=== PATIENT | female | born 1970 ===

== ENCOUNTER 2018-03-28 21:57 | Emergency (ER) | payer MEDICAID, OTHER ==
[2018-03-28 21:58] VITALS: BMI 24.6
--- NOTE | 2018-03-28 22:19 | ED PDOC ---
Arrival/HPI - General Time Seen by Provider: 03/28/18 22:12 Historian: Patient - History of Present Illness Narrative History of Present Illness (Text): 03/28/18 22:14 48 y/o female, no significant pmh, nkda, c/o Past Medical History - Infectious Disease Hx of Infectious Diseases: None - Tetanus Immunization Tetanus Immunization: Up to Date - Surgical History Hx Appendectomy: Yes - Anesthesia Hx Anesthesia: Yes Hx Anesthesia Reactions: No Hx Malignant Hyperthermia: No - Suicidal Assessment Feels Threatened In Home Enviroment: No Family/Social History Smoking Status: Never Smoked Hx Alcohol Use: No Hx Substance Use Treatment: No Allergies/Home Meds Allergies/Adverse Reactions: Allergies No Known Allergies Allergy (Verified 05/07/16 07:49) Disposition/Present on Arrival - Present on Arrival History of DVT/PE: No History of Uncontrolled Diabetes: No Urinary Catheter: No History Surgical Site Infection Following: None - Disposition
[2018-03-28] MEDS ORDERED: Sodium Chloride 0.9% 1,000 ML IV STA (22:20)
[2018-03-28 22:22] VITALS: TEMP 98.3
--- NOTE | 2018-03-28 22:25 | ED PDOC ---
Arrival/HPI <Wale Lassiter - Last Filed: 03/28/18 23:14> - General Historian: Patient - History of Present Illness Time/Duration: 24 hours Symptom Onset: Gradual Symptom Course: Unchanged Quality: Aching Activities at Onset: Eating Context: Home <Vasyl Jarrett - Last Filed: 03/29/18 00:07> - General Chief Complaint: GI Problem Time Seen by Provider: 03/28/18 22:12 - History of Present Illness Narrative History of Present Illness (Text): 03/28/18 22:22 48 year old female, with no significant past medical history or any food or drug allergies, presents to the Emergency department complaining of epigastric discomfort associated with nausea, vomiting, and diarrhea after eating a piece of salmon last night. Patient informs similar symptoms 2 years ago when eating seafood however symptoms improved spontaneously. Patient denies any fever, recent travel, recent use of antibiotics, chest pain, shortness of breath or any other complaints. Patient presents to the Emergency department for medical evaluation. PMD: Dr. Hough (Vasyl Jarrett) Past Medical History - Provider Review Nursing Documentation Reviewed: Yes - Infectious Disease Hx of Infectious Diseases: None - Tetanus Immunization Tetanus Immunization: Up to Date - Reproductive Menopause: Yes - Psychiatric Hx Substance Use: No - Surgical History Hx Appendectomy: Yes Hx Tubal Ligation: Yes - Anesthesia Hx Anesthesia: Yes Hx Anesthesia Reactions: No Hx Malignant Hyperthermia: No - Suicidal Assessment Feels Threatened In Home Enviroment: No <Vasyl Jarrett - Last Filed: 03/29/18 00:07> Family/Social History - Physician Review Nursing Documentation Reviewed: Yes Family/Social History: No Known Family HX Smoking Status: Never Smoked Hx Alcohol Use: No Hx Substance Use: No Hx Substance Use Treatment: No <Vasyl Jarrett - Last Filed: 03/29/18 00:07> Allergies/Home Meds <Wale Lassiter - Last Filed: 03/28/18 23:14> <Vasyl Jarrett - Last Filed: 03/29/18 00:07> Allergies/Adverse Reactions: Allergies No Known Allergies Allergy (Verified 03/28/18 22:18) Review of Systems - Physician Review All systems were reviewed & negative as marked: Yes - Review of Systems Constitutional: Normal. absent: Fevers Respiratory: Normal. absent: SOB Cardiovascular: Normal. absent: Chest Pain Gastrointestinal: Abdominal Pain, Diarrhea, Nausea, Vomiting Musculoskeletal: absent: Arthralgias, Myalgias Skin: absent: Rash, Pruritis Psychiatric: absent: Anxiety, Depression <Vasyl Jarrett - Last Filed: 03/29/18 00:07> Physical Exam Vital Signs Reviewed: Yes Temperature: Afebrile Blood Pressure: Normal Pulse: Regular Respiratory Rate: Normal Appearance: Positive for: Well-Appearing, Non-Toxic, Comfortable Pain Distress: Mild Mental Status: Positive for: Alert and Oriented X 3 - Systems Exam Head: Present: Atraumatic, Normocephalic Pupils: Present: PERRL Extroacular Muscles: Present: EOMI Conjunctiva: Present: Normal Mouth: Present: Moist Mucous Membranes Neck: Present: Normal Range of Motion Respiratory/Chest: Present: Clear to Auscultation, Good Air Exchange. No: Respiratory Distress, Accessory Muscle Use Cardiovascular: Present: Regular Rate and Rhythm, Normal S1, S2. No: Murmurs Abdomen: No: Tenderness, Distention, Peritoneal Signs, Rebound, Guarding Back: Present: Normal Inspection Upper Extremity: Present: Normal Inspection. No: Cyanosis, Edema Lower Extremity: Present: Normal Inspection. No: Edema Neurological: Present: GCS=15, Speech Normal, Motor Func Grossly Intact, Gait Normal, Memory Normal Skin: Present: Warm, Dry, Normal Color. No: Rashes Psychiatric: Present: Alert, Oriented x 3, Normal Insight, Normal Concentration <Vasyl Jarrett - Last Filed: 03/29/18 00:07> Vital Signs Temp Pulse Resp BP Pulse Ox 03/28/18 22:14 98.3 F 71 17 136/82 100 Medical Decision Making <Wale Lassiter - Last Filed: 03/28/18 23:14> <Vasyl Jarrett - Last Filed: 03/29/18 00:07> ED Course and Treatment: 03/28/18 22:26 Impression: 48 year old female presents to the Emergency department for epigastric discomfort, nausea, vomiting, and diarrhea. Plan: -- Labs -- IV Fluids -- Pepcid -- Reglan -- Reassess and disposition 03/29/18 00:04 -Urine hcg is negative -Labs are non-significant except K+ 3.2 (potassium chloride 40meq po ordered), Mg 1.6 (MgSul 1gm IV ordered). -Symptoms resolved, eating and drinking well, request to be discharged home. -Discharge home with pepcid, zofran, avoid dairy diet for 4-5 days, stay hydrated, BRAT diet, follow up with your own pmd and GI within 2 days, return to the ER for any new or worsening signs or symptoms. (Vasyl Jarrett) - Lab Interpretations Lab Results: 03/28/18 22:30 03/28/18 22:30 Lab Results 03/28/18 23:10: Beta HCG, Quant < 2.39 03/28/18 22:30: WBC 8.8, RBC 4.40, Hgb 11.7 L, Hct 35.2 L, MCV 80.0, MCH 26.6, MCHC 33.2, RDW 13.0, Plt Count 172, MPV 10.1, Gran % 71.1 H, Lymph % (Auto) 22.4 , [place] % (Auto) 5.7, Eos % (Auto) 0.7 L, Baso % (Auto) 0.1, Gran # 6.27, Lymph # (Auto) 2.0, [place] # (Auto) 0.5, Eos # (Auto) 0.1, Baso # (Auto) 0.01 03/28/18 22:30: Sodium 142, Potassium 3.2 L, Chloride 104, Carbon Dioxide 27, Anion Gap 14, BUN 15, Creatinine 0.6 L, Est GFR ( Amer) > 60, Est GFR ( Non-Af Amer) > 60, Random Glucose 111 H, Calcium 9.1, Magnesium 1.6 L, Total Bilirubin 0.2, AST 33, ALT 29, Alkaline Phosphatase 54, Lactate Dehydrogenase 372, Total Creatine Kinase 57, Troponin I < 0.01, Total Protein 6.5, Albumin 4.1 , Globulin 2.4, Albumin/Globulin Ratio 1.7, Lipase 99 - Medication Orders Current Medication Orders: Magnesium Sulfate/Dextrose (Magnesium Sulfate 1 Gm/100 Ml D5w) 1 gm in 100 mls @ 100 mls/hr IVPB ONCE ONE Stop: 03/29/18 00:59 Potassium Chloride (K-Dur 20 Meq Er Tab) 40 meq PO STAT STA Stop: 03/29/18 00:01 Discontinued Medications Sodium Chloride (Sodium Chloride 0.9%) 1,000 mls @ 999 mls/hr IV .Q1H1M STA Stop: 03/28/18 23:20 Last Admin: 03/28/18 22:41 Dose: 999 mls/hr eMAR Start Stop Document 03/28/18 22:41 JOL (Rec: 03/28/18 22:41 JOL [id number]) Intravenous Solution Start Date 03/28/18 Start Time 22:41 End Date 03/28/18 End time 23:42 Total Infusion Time 61 Famotidine (Pepcid 20mg/50ml Premix) 20 mg in 50 mls @ 100 mls/hr IVPB ONCE ONE Stop: 03/28/18 22:59 Last Admin: 03/28/18 22:41 Dose: 100 mls/hr eMAR Start Stop Document 03/28/18 22:41 JOL (Rec: 03/28/18 22:41 JOL [id number]) Intravenous Solution Start Date 03/28/18 Start Time 22:41 End Date 03/28/18 End time 23:11 Total Infusion Time 30 Metoclopramide HCl (Reglan) 10 mg IVP STAT STA Stop: 03/28/18 22:21 Last Admin: 03/28/18 22:41 Dose: 10 mg IVP Administration Document 03/28/18 22:41 JOL (Rec: 03/28/18 22:41 JOL [id number]) Charges for Administration # of IVP Administrations 1 - PA / HOMEWORKER / Resident Statement JOSIE has reviewed & agrees with the documentation as recorded. <Wale Lassiter - Last Filed: 03/28/18 23:14> - PA / HOMEWORKER / Resident Statement JOSIE has reviewed & agrees with the documentation as recorded. - Scribe Statement The provider has reviewed the documentation as recorded by the Scribe <Vasyl Jarrett - Last Filed: 03/29/18 00:07> - Scribe Statement Priscilla Woo. All medical record entries made by the Scribe were at my direction and personally dictated by me. I have reviewed the chart and agree that the record accurately reflects my personal performance of the history, physical exam, medical decision making, and the department course for this patient. I have also personally directed, reviewed, and agree with the discharge instructions and disposition. (Vasyl Jarrett) Disposition/Present on Arrival <Wale Lassiter - Last Filed: 03/28/18 23:14> - Present on Arrival Any Indicators Present on Arrival: No History of DVT/PE: No History of Uncontrolled Diabetes: No Urinary Catheter: No History of Decub. Ulcer: No History Surgical Site Infection Following: None - Disposition Have Diagnosis and Disposition been Completed?: Yes Disposition Time: 22:36 Patient Plan: Discharge <Vasyl Jarrett - Last Filed: 03/29/18 00:07> - Disposition Diagnosis: Gastroenteritis, Hypomagnesemia, Hypokalemia Disposition: HOME/ ROUTINE Condition: IMPROVED Discharge Instructions (ExitCare): Hypokalemia (DC), Low Magnesium Level (DC), Gastroenteritis (ED) Additional Instructions: -Discharge home with pepcid, zofran, avoid dairy diet for 4-5 days, stay hydrated, BRAT diet, follow up with your own pmd and GI within 2 days, return to the ER for any new or worsening signs or symptoms. Prescriptions: Famotidine [Pepcid] 20 mg PO BID #20 tab Ondansetron [Zofran] 4 mg PO Q8H PRN #10 tab PRN Reason: Nausea/Vomiting Referrals: Umair Hough Jr., MD [Primary Care Provider] - Follow up with primary Fernando Sarkar DO [Staff Provider] - Follow up with primary Forms: WORK NOTE
[2018-03-28] MEDS ORDERED: Famotidine 20mg/50ml 20 MG/50 ML BAG IVPB ONE (22:30)
[2018-03-28 22:51] LABS: ALB/GLOB RATIO 1.7 (1.1-1.8); ALBUMIN 4.1 g/dL (3.0-4.8); ALT/SGPT 29 U/L (7-56); AST/SGOT 33 U/L (14-36); BLOOD UREA NITROGEN 15 mg/dL (7-21); CALCIUM 9.1 mg/dL (8.4-10.5); GFR AFRICAN-AMERICAN > 60; GFR NON-AFRICAN AMERICAN > 60; LIPASE 99 U/L (23-300)
[2018-03-28 22:55] LABS: BASO # 0.01 K/mm3 (0.0-2.0); BASO % 0.1 % (0.0-3.0); EOS # 0.1 (0.0-0.7); EOS % 0.7 % (1.5-5.0); GRAN # 6.27 (1.4-6.5); GRAN % 71.1 % (50.0-68.0); HEMOGLOBIN 11.7 g/dL (12.0-16.0); LYMPH % 22.4 % (22.0-35.0); MEAN CORPUSCULAR HEMOGLOBIN 26.6 pg (25.0-35.0); MEAN CORPUSCULAR HGB CONC 33.2 g/dl (31.0-37.0); MEAN PLATELET VOLUME 10.1 fl (7.0-11.0); MONO # 0.5 (0.1-0.6); MONO % 5.7 % (1.0-6.0); RBC 4.4 10^6/uL (3.5-6.1); WHITE BLOOD COUNT 8.8 10^3/ul (4.5-11.0)
[2018-03-28 23:02] LABS: TROPONIN I < 0.01 ng/mL
[2018-03-29] MEDS ORDERED: Potassium Chloride 20 mEq ER Tab PO STA
[2018-03-29] MEDS ORDERED: Magnesium Sulfate 1 gm in D5W 1 GM/100 ML BAG IVPB ONE
[2018-03-29 02:41] VITALS: BP 127/78; PULSE 68; RESP 18; O2SAT 99
== END 2018-03-29 01:10 | disposition home or self-care (01) ==
LOC: ED 21:57
DX: K52.9 Noninfective gastroenteritis and colitis, unspecified (principal); E83.42 Hypomagnesemia; E87.6 Hypokalemia
CPT/HCPCS: 80053; 82550; 83615; 83690; 83735; 84484; 84702; 85025; 96365; 96367; 96375; 99284; J2765; J3475; J7040

== ENCOUNTER 2018-06-27 10:20 | Emergency (ER) | payer MEDICAID ==
[2018-06-27 10:21] VITALS: BMI 24.6
[2018-06-27 10:55] VITALS: TEMP 98.7
--- NOTE | 2018-06-27 11:49 | ED PDOC ---
Arrival/HPI - General Historian: Patient <Cheyenne Burns A - Last Filed: 06/27/18 15:55> <Carmen Estrada - Last Filed: 06/27/18 19:39> - General Chief Complaint: Upper Extremity Problem/Injury Time Seen by Provider: 06/27/18 11:20 - History of Present Illness Narrative History of Present Illness (Text): 06/27/18 11:43 48yo female with no pmhx who present with complaint of left shoulder pain s/p trauma 4days ago. States she was seen at [facility] yesterday and left shoulder xray was negative for fracture. she was given Ibuprofen 600mg. States she is taking it without relieve. Notes worsening pain with abduction. Denies any other complaint. (Cheyenne Burns A) Past Medical History - Provider Review Nursing Documentation Reviewed: Yes - Infectious Disease Hx of Infectious Diseases: None - Tetanus Immunization Tetanus Immunization: Up to Date - Psychiatric Hx Psychophysiologic Disorder: No Hx Substance Use: No - Surgical History Hx Appendectomy: Yes Hx Tubal Ligation: Yes - Anesthesia Hx Anesthesia: Yes Hx Anesthesia Reactions: No Hx Malignant Hyperthermia: No - Suicidal Assessment Feels Threatened In Home Enviroment: No <Cheyenne Burns A - Last Filed: 06/27/18 15:55> Family/Social History - Physician Review Nursing Documentation Reviewed: Yes Family/Social History: Unknown Family HX Smoking Status: Never Smoked Hx Alcohol Use: No Hx Substance Use: No Hx Substance Use Treatment: No <Cheyenne Burns A - Last Filed: 06/27/18 15:55> Allergies/Home Meds <Cheyenne Burns A - Last Filed: 06/27/18 15:55> <Carmen Estrada - Last Filed: 06/27/18 19:39> Allergies/Adverse Reactions: Allergies No Known Allergies Allergy (Verified 06/27/18 10:51) Review of Systems - Physician Review All systems were reviewed & negative as marked: Yes - Review of Systems Constitutional: Normal Eyes: Normal ENT: Normal Respiratory: Normal Cardiovascular: Normal Gastrointestinal: Normal Genitourinary Female: Normal Musculoskeletal: Arthralgias (Left shoulder) Skin: Normal Neurological: Normal Endocrine: Normal Hemo/Lymphatic: Normal Psychiatric: Normal <Cheyenne Burns A - Last Filed: 06/27/18 15:55> Physical Exam Vital Signs Reviewed: Yes Temperature: Afebrile Blood Pressure: Normal Pulse: Regular Respiratory Rate: Normal Appearance: Positive for: Well-Appearing, Non-Toxic, Comfortable Pain Distress: None Mental Status: Positive for: Alert and Oriented X 3 - Systems Exam Head: Present: Atraumatic, Normocephalic Pupils: Present: PERRL Extroacular Muscles: Present: EOMI Conjunctiva: Present: Normal Mouth: Present: Moist Mucous Membranes Neck: Present: Normal Range of Motion Respiratory/Chest: Present: Clear to Auscultation, Good Air Exchange. No: Respiratory Distress, Accessory Muscle Use Cardiovascular: Present: Regular Rate and Rhythm, Normal S1, S2. No: Murmurs Abdomen: No: Tenderness, Distention, Peritoneal Signs Back: Present: Normal Inspection Upper Extremity: Present: NORMAL PULSES, Tenderness (LEft proximal shoulder), Neurovascularly Intact. No: Cyanosis, Edema, Normal ROM (Limited on abduction up to 70degree), Swelling Lower Extremity: Present: Normal Inspection. No: Edema Neurological: Present: GCS=15, CN II-XII Intact, Speech Normal Skin: Present: Warm, Dry, Normal Color. No: Rashes Psychiatric: Present: Alert, Oriented x 3, Normal Insight, Normal Concentration <Cheyenne Burns A - Last Filed: 06/27/18 15:55> Vital Signs Temp Pulse Resp BP Pulse Ox 06/27/18 12:12 75 18 118/74 98 06/27/18 10:51 98.7 F 80 16 120/78 99 Medical Decision Making <Cheyenne Burns A - Last Filed: 06/27/18 15:55> <Carmen Estrada - Last Filed: 06/27/18 19:39> ED Course and Treatment: 06/27/18 15:55 PT presented to ED for stated history. Her pain was controlled in ED with medication. She stated that her pain improved and was smiling in ED. She was DC home with Tramadol and arm sling. Was advised to continue with ibuprofen and f/u with her PMD. (KatyHappiness A) - Medication Orders Current Medication Orders: Discontinued Medications Cyclobenzaprine HCl (Flexeril) 10 mg PO STAT STA Stop: 06/27/18 11:22 Last Admin: 06/27/18 11:39 Dose: 10 mg Ketorolac Tromethamine (Toradol) 60 mg IM STAT STA Stop: 06/27/18 11:21 Last Admin: 06/27/18 11:39 Dose: 60 mg MAR Pain Assessment Document 06/27/18 11:39 GMD (Rec: 06/27/18 11:39 GMD [id number]) Pain Reassessment Is this a pain reassessment? No IM Administration Charges Document 06/27/18 11:39 GMD (Rec: 06/27/18 11:39 GMD [id number]) Injection Site MAR Injection Site Right Gluteus Tomas Charges for Administration # of IM Administrations 1 - PA / SOFTWARE PERFORMANCE ENGINEER / Resident Statement MD/ has reviewed & agrees with the documentation as recorded. <Carmen Estrada - Last Filed: 06/27/18 19:39> Disposition/Present on Arrival - Present on Arrival Any Indicators Present on Arrival: No History of DVT/PE: No History of Uncontrolled Diabetes: No Urinary Catheter: No History of Decub. Ulcer: No History Surgical Site Infection Following: None - Disposition Have Diagnosis and Disposition been Completed?: Yes Disposition Time: 12:25 Patient Plan: Discharge <Cheyenne Burns - Last Filed: 06/27/18 15:55> <Carmen Estrada - Last Filed: 06/27/18 19:39> - Disposition Diagnosis: Shoulder pain Disposition: HOME/ ROUTINE Condition: STABLE Discharge Instructions (ExitCare): Shoulder Pain (DC) Additional Instructions: Follow up with your Doctor Return to ED for any new or worsening symptoms Prescriptions: traMADol [Ultram] 50 mg PO TID #9 tab Referrals: Chantell Mitchell MD [Staff Provider] - Follow up with primary Forms: zanda (Gambian)
[2018-06-27 12:13] VITALS: BP 118/74; PULSE 75; RESP 18; O2SAT 98
== END 2018-06-27 12:55 | disposition home or self-care (01) ==
LOC: ED 10:20
DX: M25.512 Pain in left shoulder (principal)
CPT/HCPCS: 96372; 99284; J1885